=== PATIENT | male | born 1965 | race Caucasian/White ===

== ENCOUNTER 2016-11-17 14:48 | Emergency (ER) | payer OTHER ==
[2016-11-17 15:49] LABS: BASOPHIL 0.3 % (0-2); EOSINOPHIL 1.5 % (0-5); HCT 47.7 % (42.0-52.0); HGB 16.5 g/dl (13.2-18.0); LYMPHOCYTE 51.8 % (15-48); MCH 31.4 pg (25.0-31.0); MCHC 34.6 g/dL (32.0-36.0); MCV 90.7 fL (78.0-100.0); MONOCYTE 11.1 % (0-12); MPV 9.6 fL (6.0-9.5); NEUTROPHIL 35.3 % (41-80); PLT 170 K/uL (150-400); RBC 5.26 M/uL (4.70-6.00); RDW 13.5 % (11.5-14.0)
[2016-11-17 15:50] LABS: BILIRUBIN NEGATIVE (NEGATIVE); BLOOD NEGATIVE Ery/uL (NEGATIVE); CLARITY CLEAR (CLEAR); COLOR YELLOW (YELLOW); GLUCOSE (U) NORMAL (NORMAL); KETONE (U) NEGATIVE (NEGATIVE); LEUKOCYTES NEGATIVE Leu/uL (NEGATIVE); NITRITE NEGATIVE (NEGATIVE); PROTEIN NEGATIVE (NEGATIVE); SPECIFIC GRAVITY 1.025 (1.001-1.030); UROBILINOGEN 0.2 mg/dL (0.2-1.0)
[2016-11-17 16:09] LABS: ALBUMIN 3.9 g/dL (3.5-5.0); BILIRUBIN - TOTAL 0.2 mg/dL (0.1-1.0); CREATININE 0.7 mg/dL (0.7-1.2); GLOBULIN (CALCULATION) 3.4 g/dL (2.2-4.2); POTASSIUM 3.9 mmol/L (3.5-5.1); TOTAL PROTEIN 7.3 g/dL (6.4-8.3)
== END 2016-11-17 17:01 | disposition home or self-care (01) ==
LOC: FER 14:48
PROVIDERS: Emergency Medicine
DX: R42 Dizziness and giddiness (principal); Z76.0 Encounter for issue of repeat prescription; I10 Essential (primary) hypertension; F17.210 Nicotine dependence, cigarettes, uncomplicated
CPT/HCPCS: 36415; 80053; 81003; 85025; 93005

== ENCOUNTER 2017-01-03 16:24 | Emergency (ER) | payer SELFPAY ==
[2017-01-03 18:42] LABS: BILIRUBIN NEGATIVE (NEGATIVE); BLOOD NEGATIVE Ery/uL (NEGATIVE); CLARITY CLEAR (CLEAR); COLOR YELLOW (YELLOW); GLUCOSE (U) NORMAL (NORMAL); KETONE (U) TRACE mg/dL (NEGATIVE); LEUKOCYTES NEGATIVE Leu/uL (NEGATIVE); NITRITE NEGATIVE (NEGATIVE); PROTEIN TRACE (LOW) mg/dL (NEGATIVE); UROBILINOGEN 0.2 mg/dL (0.2-1.0)
[2017-01-03 18:45] LABS: BASOPHIL 0.8 % (0-2); EOSINOPHIL 1.4 % (0-5); HCT 43.3 % (42.0-52.0); HGB 15.2 g/dl (13.2-18.0); LYMPHOCYTE 31.5 % (15-48); MCH 31.1 pg (25.0-31.0); MCHC 35.1 g/dL (32.0-36.0); MCV 88.5 fL (78.0-100.0); MONOCYTE 13.2 % (0-12); MPV 9.6 fL (6.0-9.5); NEUTROPHIL 53.1 % (41-80); PLT 175 K/uL (150-400); RBC 4.89 M/uL (4.70-6.00); RDW 13.2 % (11.5-14.0); WBC 4.9 K/uL (4.0-10.5)
[2017-01-03 18:54] LABS: BACTERIA TRACE; SQUAMOUS EPITHELIAL CELLS RARE
[2017-01-03 19:04] LABS: LACTIC ACID 1.9 mmol/L (0.5-2.2)
[2017-01-03 19:06] LABS: BILIRUBIN - TOTAL 0.2 mg/dL (0.1-1.0); CREATININE 0.8 mg/dL (0.7-1.2); GLOBULIN (CALCULATION) 3.3 g/dL (2.2-4.2); POTASSIUM 4.6 mmol/L (3.5-5.1); TOTAL PROTEIN 7.3 g/dL (6.4-8.3)
== END 2017-01-03 19:47 | disposition home or self-care (01) ==
LOC: FER 16:24
PROVIDERS: Internal Medicine
DX: R42 Dizziness and giddiness (principal); I10 Essential (primary) hypertension; F10.10 Alcohol abuse, uncomplicated; F17.200 Nicotine dependence, unspecified, uncomplicated; Z79.899 Other long term (current) drug therapy
CPT/HCPCS: 36415; 71010; 80053; 81001; 82550; 83605; 83690; 84484; 85025; 87040; 93005

== ENCOUNTER 2017-02-15 06:56 | Emergency (ER) | payer SELFPAY ==
[2017-02-15 07:40] LABS: BASOPHIL 0.6 % (0-2); EOSINOPHIL 1.1 % (0-5); HCT 39.6 % (42.0-52.0); HGB 13.6 g/dl (13.2-18.0); LYMPHOCYTE 37.7 % (15-48); MCH 31.6 pg (25.0-31.0); MCHC 34.3 g/dL (32.0-36.0); MCV 91.9 fL (78.0-100.0); MONOCYTE 17.9 % (0-12); MPV 8.9 fL (6.0-9.5); NEUTROPHIL 42.7 % (41-80); PLT 188 K/uL (150-400); RBC 4.31 M/uL (4.70-6.00); RDW 13.9 % (11.5-14.0); WBC 4.6 K/uL (4.0-10.5)
== END 2017-02-15 08:35 | disposition home or self-care (01) ==
LOC: FER 06:56
PROVIDERS: Emergency Medicine
DX: R42 Dizziness and giddiness (principal); I10 Essential (primary) hypertension; R00.0 Tachycardia, unspecified; F17.210 Nicotine dependence, cigarettes, uncomplicated
CPT/HCPCS: 36415; 70450; 80048; 85025; 93005